=== PATIENT | female | born 1980 | race African-American/Black ===

== ENCOUNTER 2016-09-24 11:38 | Emergency (ER) | payer OTHER, MEDICARE ==
[2016-09-24 11:48] VITALS: BP 160/83
[2016-09-24] MEDS ORDERED: IBUPROFEN 800 MG TABLET PO ONE (11:50)
--- NOTE | 2016-09-24 11:52 | ER Document Report ---
ED Medical Screen (RME) - General Stated Complaint: STOMACH PAIN Mode of Arrival: Ambulatory Information source: Patient Notes: Patient presents to the emergency department with complaints of bilateral flank pain and abdominal pain. Reports history of pancreatitis. Reports nausea declines antinausea medicine. Declines Motrin. Patient is currently under the treatment of [facility]. I have greeted and performed a rapid initial assessment of this patient. A comprehensive ED assessment and evaluation of the patient, analysis of test results and completion of the medical decision making process will be conducted by additional ED providers. TRAVEL OUTSIDE OF THE [place] IN LAST 30 DAYS: No - Related Data Allergies/Adverse Reactions: Penicillins Allergy (Verified 09/24/16 11:50) Past Medical History - Past Medical History Cardiac Medical History: Reports: Hx Hypertension Endocrine Medical History: Reports: Hx Hypothyroidism GI Medical History: Reports: Hx Gastroesophageal Reflux Disease Psychiatric Medical History: Reports: Hx Depression Past Surgical History: Reports: Hx Section, Hx Cholecystectomy - BILE DUCTS - Immunizations Hx Diphtheria, Pertussis, Tetanus Vaccination: Yes Physical Exam - Vital signs Vitals: Temp Pulse Resp BP Pulse Ox 98.5 F 76 16 160/83 H 100 09/24/16 11:48 09/24/16 11:48 09/24/16 11:48 09/24/16 11:48 09/24/16 11:48 Course - Vital Signs Vital signs: Temp Pulse Resp BP Pulse Ox 98.5 F 76 16 160/83 H 100 09/24/16 11:48 09/24/16 11:48 09/24/16 11:48 09/24/16 11:48 09/24/16 11:48
== END 2016-09-24 19:28 | disposition left against medical advice (07) ==
LOC: ER 11:38
DX: R10.9 Unspecified abdominal pain (principal); I10 Essential (primary) hypertension; E03.9 Hypothyroidism, unspecified; K21.9 Gastro-esophageal reflux disease without esophagitis; Z88.0 Allergy status to penicillin; Z90.49 Acquired absence of other specified parts of digestive tract
CPT/HCPCS: 99281

== ENCOUNTER 2017-02-15 09:58 | Emergency (ER) | payer OTHER, MEDICARE ==
[2017-02-15] MEDS ORDERED: ONDANSETRON 4 MG TAB.RAPDIS PO ONE (10:42)
[2017-02-15] MEDS ORDERED: MORPHINE SULFATE 10 MG/ML INJ IM ONE (10:42)
--- NOTE | 2017-02-15 10:46 | ER Document Report ---
ED Medical Screen (RME) - General Chief Complaint: Flank Pain Stated Complaint: SIDE PAIN Time Seen by Provider: 02/15/17 10:41 Notes: 36-year-old female patient with chronic pancreatitis has increasing pain and was told by her doctor to come to the emergency room if that occurred. 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 I have greeted and performed a rapid initial assessment of this patient. A comprehensive ED assessment and evaluation of the patient, analysis of test results and completion of the medical decision making process will be conducted by additional ED providers. TRAVEL OUTSIDE OF THE [place] IN LAST 30 DAYS: No - Related Data Allergies/Adverse Reactions: Penicillins Allergy (Verified 02/15/17 10:01) Past Medical History - Social History Chew tobacco use (# tins/day): No Frequency of alcohol use: None Drug Abuse: None - Past Medical History Cardiac Medical History: Reports: Hx Hypertension Endocrine Medical History: Reports: Hx Hypothyroidism Renal/ Medical History: Denies: Hx Peritoneal Dialysis GI Medical History: Reports: Hx Gastroesophageal Reflux Disease Psychiatric Medical History: Reports: Hx Depression Past Surgical History: Reports: Hx Section, Hx Cholecystectomy - BILE DUCTS - Immunizations Hx Diphtheria, Pertussis, Tetanus Vaccination: Yes Physical Exam - Vital signs Vitals: Temp Pulse Resp BP Pulse Ox 98.1 F 93 16 150/85 H 100 02/15/17 10:02 02/15/17 10:02 02/15/17 10:02 02/15/17 10:02 02/15/17 10:02 Course - Vital Signs Vital signs: Temp Pulse Resp BP Pulse Ox 98.1 F 93 16 150/85 H 100 02/15/17 10:02 02/15/17 10:02 02/15/17 10:02 02/15/17 10:02 02/15/17 10:02
[2017-02-15 11:45] LABS: ABSOLUTE BASOPHILS # (AUTO) 0.1 10^3/uL (0.0-0.2); ABSOLUTE LYMPHOCYTES (AUTO) 1.9 10^3/uL (0.5-4.7); ABSOLUTE MONOCYTES (AUTO) 0.3 10^3/uL (0.1-1.4); ABSOLUTE NEUT (AUTO) 5.3 10^3/uL (1.7-8.2); BASOPHILS % (AUTO) 0.9 % (0-2); EOSINOPHILS % (AUTO) 0.6 % (0-6); HEMATOCRIT 29.6 % (36.0-47.0); HEMOGLOBIN 9.2 g/dL (12.0-15.5); LYMPHOCYTES % (AUTO) 24.5 % (13-45); MEAN CORPUSCULAR HEMOGLOBIN 18.4 pg (27.0-33.4); MONOCYTES % (AUTO) 4.4 % (3-13); RED BLOOD COUNT 4.98 10^6/uL (3.72-5.28); SEGMENTED NEUTROPHILS % (AUTO) 69.6 % (42-78); WHITE BLOOD COUNT 7.7 10^3/uL (4.0-10.5)
[2017-02-15] MEDS ORDERED: HYDROMORPHONE HCL INJ/PF 2 MG/ML AMPULE IV ONE (11:49)
[2017-02-15] MEDS ORDERED: NORMAL SALINE 1000 ML 1,000 ML IV ONE (11:49)
[2017-02-15] MEDS ORDERED: ONDANSETRON HCL INJ/PF 4 MG/2 ML SDV IV ONE (11:49)
--- NOTE | 2017-02-15 11:58 | ER Document Report ---
ED GI/ - General Mode of Arrival: Ambulatory Information source: Patient TRAVEL OUTSIDE OF THE [place] IN LAST 30 DAYS: No - HPI Patient complains to provider of: Abdominal pain, Vomiting Associated symptoms: Other - see above <KEYUR WEBSTER - Last Filed: 02/15/17 12:22> <URBANO RECINOS - Last Filed: 02/15/17 14:51> - General Chief Complaint: Flank Pain Stated Complaint: SIDE PAIN Time Seen by Provider: 02/15/17 10:41 Notes: Patient is a 36 year old female who presents to the ED with complaints of left side abdominal pain that radiates around her abdomen. Patient has had chronic pancreatitis since 2006. She has been given pain medication from her PCP and she states normally it will help ease the pain and when it doesn't she was instructed to go to the ED for testing and treatment. Patient states she had an MRCP through a [facility] doctor with the [facility] and was told her pancreas is dilated and it needs to be stented. She is waiting for the date for that surgery. Patient states she had an appointment with her PCP and he didn't review the results. Patient states she has nausea and vomiting, she has a prescription for Reglan but cannot take it due to not being able to eat. Patient states her pain is worse with all food. Patient denies a fever but she states she feels hot. Patient states this feels like a typical flare up. Patient adds that she is also suppose to be having a hysterectomy for ovarian fibroids and cysts. Patient states the IM pain medication she was given stopped the pain from radiating, she is still having pain. (KEYUR WEBSTER) - Related Data Allergies/Adverse Reactions: Penicillins Allergy (Verified 02/15/17 10:01) Home Medications: Current Home Medications Lipase/Protease/Amylase [Reyeson Dr 24,000 Units Capsule] 1 each PO ASDIR PRN [History] Metoclopramide HCl 10 mg PO PRN PRN 02/15/17 [History] Oxycodone HCl/Acetaminophen [Percocet 10-325 Mg Tablet] 1 each PO PRN PRN [History] Simethicone [[place]isse[place]] 125 mg PO PRN PRN 02/15/17 [History] Past Medical History - General Information source: Patient - Social History Smoking Status: Current Every Day Smoker Chew tobacco use (# tins/day): No Smoking Education Provided: Yes Frequency of alcohol use: None Drug Abuse: None Family History: Reviewed & Not Pertinent - Past Medical History Cardiac Medical History: Reports: Hx Hypertension Endocrine Medical History: Reports: Hx Hypothyroidism Renal/ Medical History: Denies: Hx Peritoneal Dialysis GI Medical History: Reports: Hx Gastroesophageal Reflux Disease, Other Psychiatric Medical History: Reports: Hx Depression Past Surgical History: Reports: Hx Section, Hx Cholecystectomy - BILE DUCTS - Immunizations Hx Diphtheria, Pertussis, Tetanus Vaccination: Yes <KEYUR WEBSTER - Last Filed: 02/15/17 12:22> - Social History Smoking Status: Current Every Day Smoker Smoking Education Provided: Yes - greater than 5 mins <URBANO RECINOS - Last Filed: 02/15/17 14:51> Other: Pancreatitis (KEYUR WEBSTER) Review of Systems - Review of Systems Constitutional: See HPI. denies: Fever - feels hot EENT: No symptoms reported Cardiovascular: No symptoms reported Respiratory: No symptoms reported Gastrointestinal: See HPI, Abdominal pain, Nausea, Vomiting, Poor appetite Genitourinary: No symptoms reported Female Genitourinary: No symptoms reported Musculoskeletal: No symptoms reported Skin: No symptoms reported Hematologic/Lymphatic: No symptoms reported Neurological/Psychological: No symptoms reported <KEYUR WEBSTER - Last Filed: 02/15/17 12:22> Physical Exam <KEYUR WEBSTER - Last Filed: 02/15/17 12:22> <URBANO RECINOS - Last Filed: 02/15/17 14:51> - Vital signs Vitals: Temp Pulse Resp BP Pulse Ox 98.1 F 93 16 150/85 H 100 02/15/17 10:02 02/15/17 10:02 02/15/17 10:02 02/15/17 10:02 02/15/17 10:02 - Notes Notes: GENERAL: Alert, interacts well. Mildly uncomfortable. HEAD: Normocephalic, atraumatic. EYES: Pupils equal, round, and reactive to light. Extraocular movements intact. ENT: Oral mucosa moist, tongue midline. NECK: Full range of motion. Supple. Trachea midline. LUNGS: Clear to auscultation bilaterally, no wheezes, rales, or rhonchi. No respiratory distress. HEART: Regular rate and rhythm. No murmurs, gallops, or rubs. ABDOMEN: Soft. Left lateral abdominal tenderness, LUQ and epigastric tenderness to palpation, no significant RUQ tenderness. Small voluntary guarding, no rigidity and rebound. Non-distended. Bowel sounds present in all 4 quadrants. BACK: No obvious swelling posteriorly. EXTREMITIES: Moves all 4 extremities spontaneously. No edema. No cyanosis. NEUROLOGICAL: Alert and oriented x3. Normal speech. PSYCH: Normal affect, normal mood. SKIN: Warm, dry, normal turgor. No rashes or lesions noted. (KEYUR WEBSTER) Course - Laboratory Result Diagrams: 02/15/17 11:30 02/15/17 11:30 <KEYUR WEBSTER - Last Filed: 02/15/17 12:22> - Laboratory Result Diagrams: 02/15/17 11:30 02/15/17 11:30 <URBANO RECINOS - Last Filed: 02/15/17 14:51> - Re-evaluation Re-evalutation: 02/15/17 13:13 CBC shows chronic anemia with hemoglobin 9.2, no leukocytosis, no left shift, CMP grossly unremarkable slightly low potassium at 3.4 otherwise normal, LFTs normal, bilirubin normal, lipase normal at 74.6, urinalysis negative for any signs of blood or infection. Discussed with patient that this appears to be continuing chronic pancreatitis but there is no indication of acute obstruction, no indication that she needs to be emergently transferred for ERCP and stenting. Patient is aware that she will need to continue to follow[facility]up with [facility] as an [facility] who provides both her primary care and gastroenterology care. Patient is recommended to be referred to pain management for her chronic abdominal pain. We did discuss that some of her pain may be coming not from her chronic pancreatitis but possibly from gastritis or ulcers as she apparently takes multiple Denisse[place]' s a day for gas pains. Patient is also taking Reglan for nausea, we will add Zofran and Phenergan to this as well. Discussed with patient that I will give her a 2 day supply of Percocet for pain as she has not had any narcotic pain medication filled in over 2 months. She will follow-up with her primary care physician as soon as possible as an outpatient. (URBANO RECINOS) - Vital Signs Vital signs: Temp Pulse Resp BP Pulse Ox 97.6 F 76 18 172/87 H 99 02/15/17 13:24 02/15/17 13:24 02/15/17 13:24 02/15/17 13:24 02/15/17 13:24 - Laboratory Laboratory results interpreted by me: 02/15/17 02/15/17 02/15/17 11:30 11:30 12:15 Hgb 9.2 L Hct 29.6 L MCV 59 L MCH 18.4 L MCHC 31.0 L RDW 21.0 H Potassium 3.4 L BUN 5 L Creatinine 0.49 L Urine Urobilinogen 2.0 H Discharge <KEYUR WEBSTER - Last Filed: 02/15/17 12:22> <URBANO RECINOS - Last Filed: 02/15/17 14:51> - Discharge Clinical Impression: Tobacco abuse, Tobacco abuse counseling, Abdominal pain, chronic, epigastric Hypertension Qualifiers: Hypertension type: essential hypertension Qualified Code(s): I10 - Essential ( primary) hypertension Chronic pancreatitis Qualifiers: Pancreatitis type: biliary Qualified Code(s): K86.1 - Other chronic pancreatitis Gastritis Qualifiers: Gastritis type: unspecified gastritis Chronicity: chronic Gastritis bleeding: presence of bleeding unspecified Qualified Code(s): K29.50 - Unspecified chronic gastritis without bleeding Condition: Stable Disposition: HOME, SELF-CARE Additional Instructions: Your chronic abdominal pain may be coming from his chronic pancreatitis but it may also be coming from gastritis related to taking Denisse[place]. Denisse-[place] has aspirin in it and can cause breakdown of your stomach lining. I know you used to take Nexium, we can start you on Zantac also known as ranitidine. This is available [id number]. You may take 75 mg 1 tablet twice a day. I prescribed you 2 days worth of Percocet to help with your pain however it is very important to follow-up with your primary care physician and her increment manager regarding her chronic abdominal pain. You had intermittent flares of acute pain which sometimes require narcotic level pain medication, this would be best managed by either your primary care physician or pain management. Please ask them for a referral to pain management until he can get into surgery. I have also prescribed Phenergan and Zofran to be used for nausea in addition to your Reglan. Prescriptions: Ondansetron [Zofran Odt 4 mg Tablet] 1 - 2 tab PO Q4H PRN #15 tab.rapdis PRN Reason: For Nausea/Vomiting Oxycodone HCl/Acetaminophen [Percocet 5-325 mg Tablet] 1 - 2 tab PO Q4H PRN #15 tablet PRN Reason: Promethazine HCl [Phenergan 25 mg Tablet] 1 - 2 tab PO Q6H PRN #15 tablet PRN Reason: Forms: Smoking Cessation Education, Elevated Blood Pressure Referrals: OLGA PARK MD [Primary Care Provider] - Follow up as needed Scribe Attestation: 02/15/17 14:51 I personally performed the services described in the documentation, reviewed and edited the documentation which was dictated to the scribe in my presence, and it accurately records my words and actions. (URBANO RECINOS) Scribe Documentation - Scribe Written by Zaid:: zaid Greene, 02/15/2017, 1222 acting as scribe for :: Tabatha <KEYUR WEBSTER - Last Filed: 02/15/17 12:22>
[2017-02-15 12:09] LABS: ANISOCYTOSIS 3+; HYPOCHROMASIA 1+; MICROCYTOSIS 4+; POIKILOCYTOSIS 1+; POLYCHROMASIA SLIGHT
[2017-02-15 12:10] LABS: OVALOCYTES SLIGHT; TARGET CELLS 2+; TEAR DROP CELLS 1+
[2017-02-15 12:12] LABS: MEAN CORPUSCULAR VOLUME 59 fl (80-97)
[2017-02-15 12:19] LABS: ALANINE AMINOTRANSFERASE 21 U/L (9-52); ALBUMIN 4.4 g/dL (3.5-5.0); ALKALINE PHOSPHATASE 68 U/L (38-126); ANION GAP 10 (5-19); ASPARTATE AMINO TRANSFERASE 19 U/L (14-36); BILIRUBIN,DIRECT 0.3 mg/dL (0.0-0.4); BILIRUBIN,TOTAL 0.5 mg/dL (0.2-1.3); BLOOD UREA NITROGEN 5 mg/dL (7-20); CALCIUM 9.6 mg/dL (8.4-10.2); CARBON DIOXIDE 26 mmol/L (22-30); CHLORIDE 106 mmol/L (98-107); CREATININE RESULT 0.49 mg/dL (0.52-1.25); GLUCOSE 97 mg/dL (75-110); LIPASE 74.6 U/L (23-300); POTASSIUM 3.4 mmol/L (3.6-5.0); SODIUM 141.9 mmol/L (137-145)
[2017-02-15 12:39] LABS: APPEARANCE,URINE SLIGHTLY-CLOUDY; BILIRUBIN,URINE NEGATIVE (NEGATIVE); GLUCOSE, URINE NEGATIVE (NEGATIVE); KETONES,URINE NEGATIVE (NEGATIVE); LEUKOCYTE ESTERASE,URINE NEGATIVE (NEGATIVE); NITRITE,URINE NEGATIVE (NEGATIVE); PROTEIN,URINE NEGATIVE (NEGATIVE); URINE SPECIFIC GRAVITY 1.019
[2017-02-15 13:29] VITALS: BP 172/87
[2017-02-18 10:30] LABS: PATH REVIEW PATHOLOGIST REVIEWED
== END 2017-02-15 13:29 | disposition home or self-care (01) ==
LOC: ER 09:58
DX: K29.50 Unspecified chronic gastritis without bleeding (principal); R10.13 Epigastric pain; K86.1 Other chronic pancreatitis; G89.29 Other chronic pain; Z79.899 Other long term (current) drug therapy; F17.200 Nicotine dependence, unspecified, uncomplicated
CPT/HCPCS: 99284; 96372; 96361; 96374; 96375; 36415; 83690; 85025; 80053; 81001; S0119; J2270; J1170; J2405; J7030

== ENCOUNTER 2017-03-10 09:14 | Emergency (ER) | payer OTHER, MEDICARE ==
[2017-03-10] MEDS ORDERED: ONDANSETRON 4 MG TAB.RAPDIS PO ONE (10:08)
[2017-03-10] MEDS ORDERED: OXYCODONE-ACETAMINOPHEN 5-325 MG TABLET PO ONE (10:08)
--- NOTE | 2017-03-10 10:12 | ER Document Report ---
ED Medical Screen (RME) - General Chief Complaint: Flank Pain Stated Complaint: BACK PAIN Time Seen by Provider: 03/10/17 10:02 Notes: 36-year-old female with long history of recurrent pancreatitis. She was seen here on 02/14/2017 with reported flare. At that time she had recently had an MRCP showing ductal dilatation and was supposed to be seen for possible stenting. She has not been seen yet, but reports she has an appointment for consultation on 03/19/2017. She reports a 4 day history of worsening pain which is primarily left flank. She tried Motrin and Tylenol on Saturday and Saturday without much benefit. She has not eaten since this past . Brief exam shows her pain is primarily in the left paravertebral upper lumbar lower thoracic muscles and I am not convinced this has anything to do with her pancreas. I have greeted and performed a rapid initial assessment of this patient. A comprehensive ED assessment and evaluation of the patient, analysis of test results and completion of the medical decision making process will be conducted by additional ED providers. TRAVEL OUTSIDE OF THE [place] IN LAST 30 DAYS: No - Related Data Allergies/Adverse Reactions: Penicillins Allergy (Verified 03/10/17 09:23) Past Medical History - Social History Chew tobacco use (# tins/day): No Frequency of alcohol use: None Drug Abuse: None - Past Medical History Cardiac Medical History: Reports: Hx Hypertension Endocrine Medical History: Reports: Hx Hypothyroidism Renal/ Medical History: Denies: Hx Peritoneal Dialysis GI Medical History: Reports: Hx Gastroesophageal Reflux Disease Psychiatric Medical History: Reports: Hx Depression Past Surgical History: Reports: Hx Section, Hx Cholecystectomy - BILE DUCTS - Immunizations Hx Diphtheria, Pertussis, Tetanus Vaccination: Yes
[2017-03-10 10:42] LABS: ABSOLUTE BASOPHILS # (AUTO) 0.1 10^3/uL (0.0-0.2); ABSOLUTE EOSINOPHILS # (AUTO) 0.1 10^3/uL (0.0-0.6); ABSOLUTE LYMPHOCYTES (AUTO) 1.6 10^3/uL (0.5-4.7); ABSOLUTE MONOCYTES (AUTO) 0.3 10^3/uL (0.1-1.4); ABSOLUTE NEUT (AUTO) 3.8 10^3/uL (1.7-8.2); BASOPHILS % (AUTO) 0.9 % (0-2); HEMATOCRIT 31.1 % (36.0-47.0); HEMOGLOBIN 9.8 g/dL (12.0-15.5); HGB HCT DIFFERENCE -1.7; LYMPHOCYTES % (AUTO) 26.7 % (13-45); MEAN CORPUSCULAR HEMOGLOBIN 19.5 pg (27.0-33.4); MEAN CORPUSCULAR HGB CONC 31.7 g/dL (32.0-36.0); MEAN CORPUSCULAR VOLUME 62 fl (80-97); MONOCYTES % (AUTO) 5.8 % (3-13); RED BLOOD COUNT 5.04 10^6/uL (3.72-5.28); SEGMENTED NEUTROPHILS % (AUTO) 65.6 % (42-78); WHITE BLOOD COUNT 5.9 10^3/uL (4.0-10.5)
[2017-03-10 10:56] LABS: ALANINE AMINOTRANSFERASE 28 U/L (9-52); ALBUMIN 4.4 g/dL (3.5-5.0); ALKALINE PHOSPHATASE 70 U/L (38-126); ANION GAP 12 (5-19); ASPARTATE AMINO TRANSFERASE 26 U/L (14-36); BILIRUBIN,DIRECT 0.4 mg/dL (0.0-0.4); BILIRUBIN,TOTAL 0.7 mg/dL (0.2-1.3); BLOOD UREA NITROGEN 10 mg/dL (7-20); CARBON DIOXIDE 24 mmol/L (22-30); CHLORIDE 106 mmol/L (98-107); CREATININE RESULT 0.55 mg/dL (0.52-1.25); GLUCOSE 95 mg/dL (75-110); LIPASE 56.9 U/L (23-300); POTASSIUM 3.7 mmol/L (3.6-5.0); SODIUM 142.4 mmol/L (137-145); TOTAL PROTEIN 7.7 g/dL (6.3-8.2)
[2017-03-10 11:02] LABS: ANISOCYTOSIS 2+; HYPOCHROMASIA 2+; MICROCYTOSIS 3+
[2017-03-10 11:03] LABS: HELMET CELLS SLIGHT; POIKILOCYTOSIS 2+; POLYCHROMASIA SLIGHT; TARGET CELLS 1+; TEAR DROP CELLS SLIGHT
[2017-03-10] MEDS ORDERED: NORMAL SALINE 1000 ML 1,000 ML IV ONE (11:20)
--- NOTE | 2017-03-10 11:52 | ER Document Report ---
ED General - General Chief Complaint: Flank Pain Stated Complaint: BACK PAIN Time Seen by Provider: 03/10/17 10:02 TRAVEL OUTSIDE OF THE [place] IN LAST 30 DAYS: No - HPI Notes: Patient is a 36yo female with a h/o chronic pancreatitis and recurrent left flank pain who presents to the ED c/o low back pain and left flank pain x4 days. Pt states that she has been having nausea w/o vomiting as well. Her solid/fluid intake has been decreased. She is still urinating normally and w/o difficulty along with normal BM's. Pt states that she has chronic abdominal pain and chronic pelvic pain. Pt is scheduled on 03/19/17 for a stent placement for her pancreas. She was eval'd in the ED 3 weeks ago for a similar issue and had a negative work up at that time. Denies any headache, fever, head injury, neck pain, changes in vision/speech/mentation/hearing, URI, sore throat, chest pain, palpitations, syncope, cough, shortness of breath, wheeze, dyspnea, abdominal pain, nausea/vomiting/diarrhea, urinary retention, dysuria, hematuria, loss of control of bowel or bladder, numbness/tingling, saddle anesthesia, muscle paralysis/weakness, or rash. Denies IV drug use, diabetes, or injections to her back. - Related Data Allergies/Adverse Reactions: Penicillins Allergy (Verified 03/10/17 09:23) Past Medical History - Social History Smoking Status: Current Every Day Smoker Chew tobacco use (# tins/day): No Frequency of alcohol use: None Drug Abuse: None Family History: Reviewed & Not Pertinent - Past Medical History Cardiac Medical History: Reports: Hx Hypertension Endocrine Medical History: Reports: Hx Hypothyroidism Renal/ Medical History: Denies: Hx Peritoneal Dialysis GI Medical History: Reports: Hx Gastroesophageal Reflux Disease Psychiatric Medical History: Reports: Hx Depression Past Surgical History: Reports: Hx Section, Hx Cholecystectomy - BILE DUCTS - Immunizations Hx Diphtheria, Pertussis, Tetanus Vaccination: Yes Review of Systems - Review of Systems Notes: REVIEW OF SYSTEMS: CONSTITUTIONAL : Denies fever, chills, or sweats. Denies recent illness. EENT: Denies eye, ear, throat, or mouth pain or symptoms. Denies nasal or sinus congestion or discharge. Denies throat, tongue, or mouth swelling or difficulty swallowing. CARDIOVASCULAR: Denies chest pain. Denies palpitations or racing or irregular heart beat. Denies ankle edema. RESPIRATORY: Denies cough, cold, or chest congestion. Denies shortness of breath, difficulty breathing, or wheezing. GASTROINTESTINAL: see hpi GENITOURINARY: Denies difficulty urinating, painful urination, burning, frequency, blood in urine, or discharge. MUSCULOSKELETAL: see hpi SKIN: Denies rash, lesions or sores. NEUROLOGICAL: Denies confusion or altered mental status. Denies passing out or loss of consciousness. Denies dizziness or lightheadedness. Denies headache. Denies weakness or paralysis or loss of use of either side. Denies problems with gait or speech. Denies sensory loss, numbness, or tingling. Denies seizures. PSYCHIATRIC: Denies anxiety or stress. Denies depression, suicidal ideation, or homicidal ideation. ALL OTHER SYSTEMS REVIEWED AND NEGATIVE. Dictation was performed using [employer] voice recognition software Physical Exam - Vital signs Vitals: Temp Pulse Resp BP Pulse Ox 98.1 F 102 H 16 162/97 H 99 03/10/17 09:22 03/10/17 09:22 03/10/17 09:22 03/10/17 09:22 03/10/17 09:22 Notes: PHYSICAL EXAMINATION: GENERAL: Well-appearing, well-nourished and in no acute distress. EYES: Pupils equal round and reactive to light, extraocular movements intact, sclera anicteric, conjunctiva are normal. NECK: Normal range of motion, supple without lymphadenopathy. No rigidity. LUNGS: Breath sounds clear to auscultation bilaterally and equal. No wheezes rales or rhonchi. HEART: Regular rate and rhythm without murmurs, rubs, gallops. ABDOMEN: Soft, no rigidity, nondistended abdomen. No guarding, no rebound. No masses appreciated. Normal bowel sounds present. No CVA tenderness bilaterally. + minimal tenderness generalized. ?true tenderness. Back: FROM to passive/active. Strength 5+/5. Pt has mild tenderness to palp of the left superior L-paraspinal musculature to light touch. Musculoskeletal: LE's b/l: FROM to passive/active. Strength 5+/5. Extremities: No cyanosis, clubbing, or edema b/l. Peripheral pulses 2+. Capillary refill less than 3 seconds. NEUROLOGICAL: Cranial nerves grossly intact. Normal speech, normal gait. Normal sensory, motor exams PSYCH: Normal mood, normal affect. SKIN: Warm, Dry, normal turgor, no rashes or lesions noted. Course - Re-evaluation Re-evalutation: 03/10/17 12:[address] Hernandez who is in agreement with discharge/plan: Patient is an afebrile, well-hydrated, 36-year-old female who presents the ED with chronic back/abdominal pain. Vitals are stable. PE otherwise unremarkable. Pt continually requesting narcotics even though she was given Oxycodone during her triage. CBC, CMP, lipase, UA unremarkable for acute pathology. No imaging warranted at this time. Based on exam, it appears as though she has musculoskeletal pain in her left low/mid back w/o any neurological compromise. Pt is having normal BM's and urinary habits. No white count. Stable anemia. negative Lipase for acute process. Pt is scheduled for a stent placement in 9 days. I do not feel narcotics are warranted for her current condition. Pt was threatening to leave if she did not receive pain medication. She was told that we needed to wait for her labs to return and that she had received pain medication at the door. I did give her Toradol 30mg IV, 1L NS, Zofran (by triage provider), Oxycodone (by triage provider), lidoderm patch, and heat pack placed today. Low suspicion for any meningitis, fracture, acute abdomen (ovarian torsion, appendicitis, pancreatitis , peritonitis, cholecystitis/angitis, etc), expanding/ruptured AAA, cauda equina syndrome, epidural mass lesion/abscess, herniated disc causing severe spinal stenosis, or other systemic urgent/emergent condition at this time. Patient is aware that her condition can change from initial presentation and that she needs monitor symptoms closely for any acute changes. I will send her home with a Rx for zofran and naproxen. Conservative measures otherwise for symptoms as reviewed. Recheck with your PCM this week. Keep your consult for your stent placement. Return to the ED with any worsening/concerning symptoms otherwise as reviewed discharge. Patient is in agreement. - Vital Signs Vital signs: Temp Pulse Resp BP Pulse Ox 98.1 F 102 H 16 162/97 H 99 03/10/17 09:22 03/10/17 09:22 03/10/17 09:22 03/10/17 09:22 03/10/17 09:22 - Laboratory Result Diagrams: 03/10/17 10:17 03/10/17 10:17 Laboratory results interpreted by me: 03/10/17 03/10/17 10:17 10:43 Hgb 9.8 L Hct 31.1 L MCV 62 L MCH 19.5 L MCHC 31.7 L RDW 22.0 H Urine Urobilinogen 2.0 H Discharge - Discharge Clinical Impression: Chronic abdominal pain Chronic back pain Qualifiers: Back pain location: low back pain Back pain laterality: left Sciatica presence : without sciatica Qualified Code(s): M54.5 - Low back pain Condition: Stable Disposition: HOME, SELF-CARE Instructions: Abdominal Pain ([facility]), Antinausea Medication ([facility]) Additional Instructions: Rest, Ice Maintain adequate fluid/food intake. Tylenol/ibuprofen as needed Light stretches daily Strength exercises as able Moist heat and massage may help F/u with your PCP in 2-3 days for a recheck Consider consult(s) with Orthopedics/physical therapy for ongoing/worsening symptoms Return to the ED with any worsening symptoms and/or development of fever, headache, chest pain, palpitations, syncope, shortness of breath, trouble breathing, abdominal pain, n/v/d, blood in stool/urine, loss of control of bowel /bladder, urinary retention, muscle weakness/paralysis, saddle anesthesia, numbness/tingling, or other worsening symptoms that are concerning to you. Prescriptions: Naproxen 500 mg PO BID PRN #30 tablet PRN Reason: Ondansetron [Zofran Odt 4 mg Tablet] 1 - 2 tab PO Q4H PRN #15 tab.rapdis PRN Reason: For Nausea/Vomiting Referrals: [facility] [Provider Group] - Follow up as needed [facility] [Provider Group] - Follow up as needed JOSE MALDONADO MD [ACTIVE STAFF] - Follow up as needed
[2017-03-10] MEDS ORDERED: KETOROLAC TROMETHAMINE INJ/PF 30 MG/1 ML SDV IV ONE (11:53)
[2017-03-10] MEDS ORDERED: LIDOCAINE 5% (700 MG) TRANSDERMAL ADH..PATCH TP ONE (11:53)
[2017-03-10 12:03] LABS: APPEARANCE,URINE SLIGHTLY-CLOUDY; BILIRUBIN,URINE NEGATIVE (NEGATIVE); GLUCOSE, URINE NEGATIVE (NEGATIVE); KETONES,URINE NEGATIVE (NEGATIVE); LEUKOCYTE ESTERASE,URINE NEGATIVE (NEGATIVE); NITRITE,URINE NEGATIVE (NEGATIVE); PROTEIN,URINE NEGATIVE (NEGATIVE); URINE SPECIFIC GRAVITY 1.025
[2017-03-10 13:02] VITALS: BP 162/97
== END 2017-03-10 13:03 | disposition home or self-care (01) ==
LOC: ER 09:14
DX: G89.29 Other chronic pain (principal); R10.9 Unspecified abdominal pain; M54.5 Low back pain; R11.0 Nausea; F17.200 Nicotine dependence, unspecified, uncomplicated; I10 Essential (primary) hypertension; E03.9 Hypothyroidism, unspecified; K21.9 Gastro-esophageal reflux disease without esophagitis; Z88.0 Allergy status to penicillin; Z90.49 Acquired absence of other specified parts of digestive tract
CPT/HCPCS: 99284; 96374; 36415; 83690; 84703; 85025; 80053; 81001; S0119; J1885; J7030

== ENCOUNTER 2017-06-03 08:23 | Day surgery (SDC) | payer OTHER, MEDICARE ==
[2017-05-31 10:49] LABS: MEAN CORPUSCULAR HEMOGLOBIN 20.1 pg (27.0-33.4); MEAN CORPUSCULAR HGB CONC 32.2 g/dL (32.0-36.0); MEAN CORPUSCULAR VOLUME 63 fl (80-97); RED BLOOD COUNT 4.48 10^6/uL (3.72-5.28); RED CELL DISTRIBUTION WIDTH 21.5 % (11.5-14.0); WHITE BLOOD COUNT 5.7 10^3/uL (4.0-10.5)
[2017-05-31 11:01] LABS: ALANINE AMINOTRANSFERASE 24 U/L (9-52); ALBUMIN 4.4 g/dL (3.5-5.0); ALKALINE PHOSPHATASE 55 U/L (38-126); ANION GAP 12 (5-19); ASPARTATE AMINO TRANSFERASE 19 U/L (14-36); BILIRUBIN,DIRECT 0.3 mg/dL (0.0-0.4); BILIRUBIN,TOTAL 0.5 mg/dL (0.2-1.3); BLOOD UREA NITROGEN 9 mg/dL (7-20); CARBON DIOXIDE 28 mmol/L (22-30); CHLORIDE 105 mmol/L (98-107); GLUCOSE 73 mg/dL (75-110); POTASSIUM 4.4 mmol/L (3.6-5.0); TOTAL PROTEIN 7.2 g/dL (6.3-8.2)
[~2017-06-03 08:23] MED LIST: CEFAZOLIN 1 GM/D5W RTU 1 GM/50 ML RTUPB IV PRN; LACTATED RINGERS 1000 ML IV PRN; LIDOCAINE 0.5% INJ-PF (5 MG/ML) 50 ML SDV SUBCUT PRN
[2017-06-03 08:48] LABS: APPEARANCE,URINE CLEAR; BILIRUBIN,URINE NEGATIVE (NEGATIVE); GLUCOSE, URINE NEGATIVE (NEGATIVE); KETONES,URINE NEGATIVE (NEGATIVE); LEUKOCYTE ESTERASE,URINE NEGATIVE (NEGATIVE); NITRITE,URINE NEGATIVE (NEGATIVE); PROTEIN,URINE NEGATIVE (NEGATIVE)
[2017-06-03 08:58] LABS: BACTERIA,URINE TRACE /HPF; RBC,URINE RARE /HPF
[2017-06-03] MEDS ORDERED: VECURONIUM BROMIDE INJ 10 MG VIAL IV ONE (10:00)
[2017-06-03] MEDS ORDERED: DEXAMETHASONE SOD PHOSPHATE INJ 4 MG/1 ML VIAL ONE (10:00)
[2017-06-03] MEDS ORDERED: GLYCOPYRROLATE INJ 0.4 MG/2 ML VIAL ONE (10:00)
[2017-06-03] MEDS ORDERED: ONDANSETRON HCL INJ/PF 4 MG/2 ML SDV ONE (10:00)
[2017-06-03] MEDS ORDERED: NEOSTIGMINE METHYLSULFATE 10 MG/10 ML VIAL ONE (10:00)
[2017-06-03] MEDS ORDERED: LIDOCAINE 2% INJ-PF (20 MG/ML) 2 ML AMPUL ONE (10:00)
[2017-06-03] MEDS ORDERED: FENTANYL CITRATE INJ/PF 100 MCG/2 ML AMPUL ONE ×3 (11:09→14:41)
[2017-06-03] MEDS ORDERED: ACETAMINOPHEN 100 ML IV ONE ×2 (11:10→13:40)
[2017-06-03] MEDS ORDERED: PROPOFOL INJ 200 MG/20 ML VIAL IV ONE (11:10)
[2017-06-03] MEDS ORDERED: MIDAZOLAM 2 MG/2 ML INJ ONE (11:10)
[2017-06-03] MEDS ORDERED: HYDROMORPHONE HCL INJ/PF 2 MG/ML AMPULE ONE ×4 (11:10→19:15)
[2017-06-03] MEDS ORDERED: LABETALOL HCL INJ 20 MG/4 ML DISP.SYRIN IV ONE (12:14)
[2017-06-03] MEDS ORDERED: DIPHENHYDRAMINE HCL 50 MG/ML VIAL IV PRN (12:51)
[2017-06-03] MEDS ORDERED: MORPHINE SULFATE 10 MG/ML INJ IV PRN (12:51)
[2017-06-03] MEDS ORDERED: MEPERIDINE HCL/PF INJ 25 MG/1 ML DISP.SYRIN IV PRN (12:51)
[2017-06-03] MEDS ORDERED: PROMETHAZINE HCL INJ 25 MG/1 ML VIAL IV PRN (12:51)
[2017-06-03] MEDS ORDERED: FENTANYL CITRATE INJ/PF 100 MCG/2 ML AMPUL IV PRN ×3 (12:51)
--- NOTE | 2017-06-03 13:28 | OPERATIVE REPORT E ---
Operative Report NAME: QUENTIN BELTRAN : 1980 AGE: 36Y DATE OF SURGERY: 06/03/2017 ROOM: PREOPERATIVE DIAGNOSIS: Menorrhagia. POSTOPERATIVE DIAGNOSIS: Menorrhagia. PROCEDURE: Total hysterectomy by robotics. ESTIMATED BLOOD LOSS: Approximately 200 mL. SURGEON: Yogesh VALENCIA M.D. TISSUE REMOVED: Uterus. ANESTHESIA: General. DESCRIPTION OF PROCEDURE: Patient was placed in a deep dorsal lithotomy position and prepped and draped in a sterile fashion. Speculum was placed and cervix was visualized and grasped with a single-toothed tenaculum sounded to a depth of 10 cm. The uterine manipulator was then placed. Single-toothed tenaculum was removed and attention was turned to the abdomen. A supraumbilical incision was made and vagina entered with sharp dissection. A trocar was then placed. Visualization of the pelvis with multiple adhesions through the anterior abdominal wall from the omentum. Second puncture was made to the right and a trocar was introduced *------* to the left and an accessory port in the lower right quadrant. Robot was docked in usual fashion. Using monopolar cautery, the right utero-ovarian ligament was identified and divided and this was continued down to the uterine artery on the right and procedure was repeated on the left. The bladder flap was created with sharp dissection. *------* was identified and the mucosa was entered with sharp dissection using cautery and this was carried around and the uterus removed. The cuff was then closed with running suture of 0 Vicryl. Hemostasis was noted. The trocars were removed after deflating the abdomen and incision was closed with 0 Vicryl for the fascia and 4-0 subcutaneous. The patient's urine remained clear throughout the procedure. She was taken to recovery room in good condition. DICTATING PHYSICIAN: Yogesh VALENCIA M.D. [id number] PHY#: [id number] ID: [id number] JOB#: [id number] ACCT: [id number] cc:Yogesh VALENCIA M.D. >
[2017-06-03] MEDS ORDERED: KETOROLAC TROMETHAMINE INJ/PF 30 MG/1 ML SDV ONE (13:34)
[2017-06-03] MEDS: FENTANYL CITRATE INJ/PF 100 MCG/2 ML AMPUL ONE ×2 (13:39→13:43)
[2017-06-03] MEDS ORDERED: HYDROMORPHONE HCL 2 MG TABLET PO PRN ×2 (14:07→14:08)
[2017-06-03] MEDS ORDERED: HYDROMORPHONE HCL INJ/PF 2 MG/ML AMPULE IV PRN ×2 (14:07)
[2017-06-03] MEDS ORDERED: ONDANSETRON 4 MG TAB.RAPDIS PO PRN (14:08)
[2017-06-03] MEDS ORDERED: MORPHINE SULFATE 10 MG/ML INJ ONE (14:12)
[2017-06-03] MEDS ORDERED: OXYCODONE-ACETAMINOPHEN 5-325 MG TABLET ONE (14:29)
[2017-06-03] MEDS: HYDROMORPHONE HCL INJ/PF 2 MG/ML AMPULE ONE ×2 (14:30→14:53)
[2017-06-03 17:26] LABS: HEMATOCRIT 24.2 % (36.0-47.0); HGB HCT DIFFERENCE -1.7; MEAN CORPUSCULAR VOLUME 64 fl (80-97); RED BLOOD COUNT 3.76 10^6/uL (3.72-5.28); RED CELL DISTRIBUTION WIDTH 21.6 % (11.5-14.0); WHITE BLOOD COUNT 16.7 10^3/uL (4.0-10.5)
[2017-06-03] MEDS ORDERED: LORAZEPAM 1 MG TABLET ONE (17:29)
[2017-06-03] MEDS: IBUPROFEN 800 MG TABLET PO SCH (17:40)
[2017-06-03 17:45] LABS: ANION GAP 13 (5-19); BLOOD UREA NITROGEN 12 mg/dL (7-20); CALCIUM 8.6 mg/dL (8.4-10.2); CARBON DIOXIDE 19 mmol/L (22-30); CHLORIDE 107 mmol/L (98-107); CREATININE RESULT 0.57 mg/dL (0.52-1.25); GLUCOSE 90 mg/dL (75-110); POTASSIUM 3.8 mmol/L (3.6-5.0); SODIUM 139.3 mmol/L (137-145)
[2017-06-03] MEDS: LORAZEPAM 1 MG TABLET PO SCH (17:46)
[2017-06-03 18:07] LABS: ANISOCYTOSIS 3+; BASOPHILS % (MANUAL) 0 % (0-2); EOSINOPHILS % (MANUAL) 0 % (0-6); HYPOCHROMASIA 1+; LYMPHOCYTES % (MANUAL) 5 % (13-45); MICROCYTOSIS 3+; TOTAL CELLS COUNTED 100
[2017-06-03 18:08] LABS: TARGET CELLS SLIGHT
[2017-06-03 18:09] LABS: HEMOGLOBIN 7.5 g/dL (12.0-15.5)
[2017-06-03] MEDS ORDERED: SIMETHICONE 80 MG TAB.CHEW PO PRN (19:04)
[2017-06-03] MEDS ORDERED: HYDRALAZINE HCL INJ/PF 20 MG/1 ML SDV ONE (19:11)
[2017-06-03] MEDS ORDERED: METOCLOPRAMIDE HCL INJ/PF 10 MG/2 ML SDV ONE (19:18)
[2017-06-03] MEDS ORDERED: DIPHENHYDRAMINE HCL 50 MG/ML VIAL IV ONE (19:25)
[2017-06-03] MEDS ORDERED: LORAZEPAM INJ 2 MG/1 ML VIAL IV ONE (19:26)
[2017-06-03] MEDS ORDERED: DIPHENHYDRAMINE HCL 50 MG/ML VIAL ONE (19:30)
[2017-06-03] MEDS ORDERED: LORAZEPAM INJ 2 MG/1 ML VIAL ONE (19:31)
--- NOTE | 2017-06-03 19:38 | Progress Note ---
Provider Note Provider Note: called to rapid response. Patient found to be tachycardic and hypertensive with a BP 190/110 of , HR of 120 SPo2 100% on RA. Patient reports taking verapamil at home. Reports history of chronic opiate dependance, prior hx of etoh, chronic pancreatitis, HTN. patient denies chest pain and shortness of breath. Admits to abdominal pain, sharp LUQ. Patient obviously anxious and possibly in pain. Given hydralazine 10mg IV x1, and dilaudid 1mg IV x1. Patient had minimal improvement. Gen: A+Ox3, in pain HEENT: AT/NC, MMM Chest: CTAB CV: tachycardic, RRR Abdomen: soft, pain out of proportion to physical exam EXT: no edema Neuro: grossly intact Psych: anxious Will obtain EKG, Cardiac enzymes, BMP, Mag, CBC, and lipase. Give haldol, ativan , benadryl. Spoke to Dr. Lucero and offered imaging and was declined. Advised to follow labs and asked to examine patient. He agrees. Will sign off.
[2017-06-03] MEDS ORDERED: LIDOCAINE 2% VISCOUS SOLN 20 ML UDCUP PO ONE (19:45)
[2017-06-03] MEDS ORDERED: METOCLOPRAMIDE HCL ORAL SOLN 10 MG/10 ML UDCUP PO ONE (19:45)
[2017-06-03] MEDS ORDERED: MAG HYDROX/AL HYDROX/SIMETH SUSP 30 ML UDCUP PO ONE (19:45)
[2017-06-03] MEDS ORDERED: NALOXONE HCL INJ 2 MG/2 ML DISP.SYRIN IV PRN (19:47)
--- NOTE | 2017-06-03 19:47 | Progress Note ---
Provider Note Provider Note: Will add narcan prn due to patient unusually high narcotic need. Also defer diagnosis, treatment, and prognosis of postoperative abdominal pain in post operative patient to the primary MICROFILM MACHINE OPERATOR attending. He is present at bedside evaluating patient.
[2017-06-03 19:51] LABS: LIPASE 45.6 U/L (23-300)
[2017-06-03 19:52] LABS: HEMATOCRIT 25.5 % (36.0-47.0); HGB HCT DIFFERENCE -2.1; MEAN CORPUSCULAR HEMOGLOBIN 19.4 pg (27.0-33.4); MEAN CORPUSCULAR HGB CONC 30.6 g/dL (32.0-36.0); MEAN CORPUSCULAR VOLUME 63 fl (80-97); RED BLOOD COUNT 4.03 10^6/uL (3.72-5.28); WHITE BLOOD COUNT 18.1 10^3/uL (4.0-10.5)
[2017-06-03 19:53] LABS: ANION GAP 14 (5-19); BLOOD UREA NITROGEN 12 mg/dL (7-20); CARBON DIOXIDE 19 mmol/L (22-30); CHLORIDE 106 mmol/L (98-107); CREATININE RESULT 0.57 mg/dL (0.52-1.25); GLUCOSE 117 mg/dL (75-110); HEMOGLOBIN 7.8 g/dL (12.0-15.5); MAGNESIUM 1.9 mg/dL (1.6-2.3); POTASSIUM 4.1 mmol/L (3.6-5.0); SODIUM 138.5 mmol/L (137-145)
[2017-06-03 20:04] LABS: CREATINE KINASE MB 0.75 ng/mL (<4.55)
[2017-06-03 20:05] LABS: TROPONIN I < 0.012 ng/mL
[2017-06-03] MEDS ORDERED: HYDRALAZINE HCL INJ/PF 20 MG/1 ML SDV IV ONE (20:15)
[2017-06-03 20:26] LABS: BASOPHILS % (MANUAL) 0 % (0-2); EOSINOPHILS % (MANUAL) 0 % (0-6); LYMPHOCYTES % (MANUAL) 5 % (13-45); TOTAL CELLS COUNTED 100
[2017-06-03 20:27] LABS: ANISOCYTOSIS 3+; HYPOCHROMASIA 1+; MICROCYTOSIS 3+; PLATELET CLUMPS PRESENT; TARGET CELLS SLIGHT
[2017-06-03] MEDS ORDERED: HALOPERIDOL LACTATE INJ 5 MG/1 ML VIAL IV ONE (20:30)
--- NOTE | 2017-06-03 20:43 | EKG REPORT ---
SEVERITY:- ABNORMAL ECG - SINUS TACHYCARDIA NONSPECIFIC IVCD WITH LAD LEFT VENTRICULAR HYPERTROPHY INFERIOR Q WAVES, PROBABLY NORMAL VARIATION : Confirmed by: Reina Abernathy 03-Jun-2017 20:43:11
--- NOTE | 2017-06-03 20:43 | EKG REPORT ---
SEVERITY:- ABNORMAL ECG - SINUS RHYTHM VENTRICULAR BIGEMINY BORDERLINE T ABNORMALITIES, ANTERIOR LEADS : Confirmed by: Reina Abernathy 03-Jun-2017 20:43:35
--- NOTE | 2017-06-03 20:43 | EKG REPORT ---
SEVERITY:- ABNORMAL ECG - SINUS TACHYCARDIA VENTRICULAR BIGEMINY INFERIOR Q WAVES, PROBABLY NORMAL VARIATION BORDERLINE PROLONGED QT INTERVAL : Confirmed by: Reina Abernathy 03-Jun-2017 20:42:57
[2017-06-03 22:49] LABS: ABSOLUTE LYMPHOCYTES (AUTO) 1.3 10^3/uL (0.5-4.7); ABSOLUTE MONOCYTES (AUTO) 0.5 10^3/uL (0.1-1.4); ABSOLUTE NEUT (AUTO) 11.4 10^3/uL (1.7-8.2); BASOPHILS % (AUTO) 0.1 % (0-2); HEMATOCRIT 22.5 % (36.0-47.0); HGB HCT DIFFERENCE -1.2; LYMPHOCYTES % (AUTO) 9.5 % (13-45); MEAN CORPUSCULAR HEMOGLOBIN 20.1 pg (27.0-33.4); MEAN CORPUSCULAR HGB CONC 31.8 g/dL (32.0-36.0); MEAN CORPUSCULAR VOLUME 63 fl (80-97); MONOCYTES % (AUTO) 3.8 % (3-13); RED BLOOD COUNT 3.55 10^6/uL (3.72-5.28); RED CELL DISTRIBUTION WIDTH 21.9 % (11.5-14.0); SEGMENTED NEUTROPHILS % (AUTO) 86.6 % (42-78); WHITE BLOOD COUNT 13.2 10^3/uL (4.0-10.5)
[2017-06-03 22:50] LABS: HEMOGLOBIN 7.1 g/dL (12.0-15.5)
[2017-06-03 22:53] LABS: ANISOCYTOSIS 3+; HYPOCHROMASIA 1+; MICROCYTOSIS 3+; POIKILOCYTOSIS SLIGHT; TARGET CELLS SLIGHT; TEAR DROP CELLS SLIGHT
[2017-06-03] MEDS: HYDROMORPHONE HCL INJ/PF 2 MG/ML AMPULE IV PRN (23:16)
[2017-06-04] MEDS: HYDROMORPHONE HCL INJ/PF 2 MG/ML AMPULE IV PRN ×3 (04:34→10:55)
[2017-06-04] MEDS: LORAZEPAM 1 MG TABLET PO SCH (06:10)
[2017-06-04 07:05] LABS: ABSOLUTE MONOCYTES (AUTO) 0.7 10^3/uL (0.1-1.4); ABSOLUTE NEUT (AUTO) 7.1 10^3/uL (1.7-8.2); BASOPHILS % (AUTO) 0.3 % (0-2); HEMATOCRIT 20.4 % (36.0-47.0); HGB HCT DIFFERENCE -0.3; LYMPHOCYTES % (AUTO) 20.2 % (13-45); MEAN CORPUSCULAR HEMOGLOBIN 20.7 pg (27.0-33.4); MEAN CORPUSCULAR HGB CONC 32.8 g/dL (32.0-36.0); MEAN CORPUSCULAR VOLUME 63 fl (80-97); MONOCYTES % (AUTO) 6.8 % (3-13); RED BLOOD COUNT 3.25 10^6/uL (3.72-5.28); RED CELL DISTRIBUTION WIDTH 21.9 % (11.5-14.0); SEGMENTED NEUTROPHILS % (AUTO) 72.7 % (42-78); WHITE BLOOD COUNT 9.7 10^3/uL (4.0-10.5)
[2017-06-04 07:31] LABS: ANION GAP 10 (5-19); BLOOD UREA NITROGEN 10 mg/dL (7-20); CALCIUM 8.3 mg/dL (8.4-10.2); CARBON DIOXIDE 22 mmol/L (22-30); CHLORIDE 108 mmol/L (98-107); CREATININE RESULT 0.58 mg/dL (0.52-1.25); GLUCOSE 93 mg/dL (75-110); POTASSIUM 3.7 mmol/L (3.6-5.0); SODIUM 140.3 mmol/L (137-145)
[2017-06-04 08:01] LABS: HEMOGLOBIN 6.7 g/dL (12.0-15.5)
[2017-06-04 08:12] LABS: TOXIC GRANULATION SLIGHT
[2017-06-04 08:13] LABS: ANISOCYTOSIS 3+; HYPOCHROMASIA 2+; MICROCYTOSIS 3+; POIKILOCYTOSIS SLIGHT; POLYCHROMASIA SLIGHT; TEAR DROP CELLS SLIGHT
[2017-06-04] MEDS ORDERED: VERAPAMIL HCL 120 MG TABLET.SA PO SCH (10:00)
[2017-06-04] MEDS: IBUPROFEN 800 MG TABLET PO SCH (10:55)
--- NOTE | 2017-06-04 16:43 | PDOC DISCHARGE SUMMARY ---
General - Admit/Disc Date/PCP Admission Date/Primary Care Provider: CADENCE BERGMAN MD Discharge Date: 06/04/17 - Discharge Diagnosis (1) Pelvic peritoneal adhesions, female Is this a current diagnosis for this admission?: Yes (2) Fibroids Is this a current diagnosis for this admission?: Yes History of Present Illness Patient complains of: Pelvic pain and heavy menses. History of Present Illness: QUENTIN BELTRAN is a 36 year old female She presents with anemia from blood loss, fibroids and heavy menses with adhsions and pain. She underwent a robotic hysterectomy. Hospital Course Hospital Course: She underwent a robotic hysterectomy. Post op she had anemia from blood loss prior to the surgery and with the hysterectomy but did not need a blood transfusion. She also had some anxiety and blood pressure issues related to pain control. The following day she did much better and is ready to go home. Physical Exam - Physical Exam Vital Signs: Temp Pulse Resp BP Pulse Ox 98.0 F 114 H 16 156/85 H 100 06/04/17 15:34 06/04/17 15:34 06/04/17 15:34 06/04/17 15:34 06/04/17 15:34 Intake & Output 06/03/17 06/04/17 06/05/17 06:59 06:59 06:59 Intake Total 4030 240 Output Total 3550 300 Balance 480 -60 Weight 75.3 kg General appearance: PRESENT: no acute distress, well-developed, well-nourished Head exam: PRESENT: atraumatic, normocephalic GI/Abdominal exam: PRESENT: normal bowel sounds, soft. ABSENT: distended, guarding, mass, organolmegaly, rebound, tenderness Extremities exam: PRESENT: full ROM. ABSENT: calf tenderness, clubbing, pedal edema Result Laboratory Results: 06/04/17 06:29 06/04/17 06:29 06/03/17 06/03/17 06/03/17 17:07 17:07 19:17 WBC 16.7 H RBC 3.76 Hgb 7.5 L Hct 24.2 L MCV 64 L MCH 20.0 L MCHC 31.0 L RDW 21.6 H Plt Count 284 Seg Neutrophils % Not Reportable Lymphocytes % Not Reportable Monocytes % Not Reportable Eosinophils % Not Reportable Basophils % Not Reportable Absolute Neutrophils Not Reportable Absolute Lymphocytes Not Reportable Absolute Monocytes Not Reportable Absolute Eosinophils Not Reportable Absolute Basophils Not Reportable Sodium 139.3 Potassium 3.8 Chloride 107 Carbon Dioxide 19 L Anion Gap 13 BUN 12 Creatinine 0.57 Est GFR ( Amer) > 60 Est GFR (Non-Af Amer) > 60 Glucose 90 Calcium 8.6 Magnesium Lipase Cancelled Blood Type Antibody Screen 06/03/17 06/03/17 06/03/17 19:17 19:17 19:17 WBC 18.1 H RBC 4.03 Hgb 7.8 L Hct 25.5 L MCV 63 L MCH 19.4 L MCHC 30.6 L RDW 22.0 H Plt Count 339 Seg Neutrophils % Not Reportable Lymphocytes % Not Reportable Monocytes % Not Reportable Eosinophils % Not Reportable Basophils % Not Reportable Absolute Neutrophils Not Reportable Absolute Lymphocytes Not Reportable Absolute Monocytes Not Reportable Absolute Eosinophils Not Reportable Absolute Basophils Not Reportable Sodium 138.5 Potassium 4.1 Chloride 106 Carbon Dioxide 19 L Anion Gap 14 BUN 12 Creatinine 0.57 Est GFR ( Amer) > 60 Est GFR (Non-Af Amer) > 60 Glucose 117 H Calcium 9.0 Magnesium 1.9 Lipase 45.6 Blood Type Antibody Screen 06/03/17 06/03/17 06/04/17 19:46 22:00 06:29 WBC 13.2 H 9.7 RBC 3.55 L 3.25 L Hgb 7.1 L 6.7 L Hct 22.5 L 20.4 L MCV 63 L 63 L MCH 20.1 L 20.7 L MCHC 31.8 L 32.8 RDW 21.9 H 21.9 H Plt Count 269 245 Seg Neutrophils % 86.6 H 72.7 Lymphocytes % 9.5 L 20.2 Monocytes % 3.8 6.8 Eosinophils % 0.0 0.0 Basophils % 0.1 0.3 Absolute Neutrophils 11.4 H 7.1 Absolute Lymphocytes 1.3 2.0 Absolute Monocytes 0.5 0.7 Absolute Eosinophils 0.0 0.0 Absolute Basophils 0.0 0.0 Sodium Potassium Chloride Carbon Dioxide Anion Gap BUN Creatinine Est GFR ( Amer) Est GFR (Non-Af Amer) Glucose Calcium Magnesium Lipase Blood Type B POSITIVE Antibody Screen NEGATIVE 06/04/17 06:29 WBC RBC Hgb Hct MCV MCH MCHC RDW Plt Count Seg Neutrophils % Lymphocytes % Monocytes % Eosinophils % Basophils % Absolute Neutrophils Absolute Lymphocytes Absolute Monocytes Absolute Eosinophils Absolute Basophils Sodium 140.3 Potassium 3.7 Chloride 108 H Carbon Dioxide 22 Anion Gap 10 BUN 10 Creatinine 0.58 Est GFR ( Amer) > 60 Est GFR (Non-Af Amer) > 60 Glucose 93 Calcium 8.3 L Magnesium Lipase Blood Type Antibody Screen 06/03/17 06/03/17 19:17 19:17 Creatine Kinase 181 H CK-MB (CK-2) 0.75 Troponin I < 0.012 Impressions: Doing well Post op day one. Home with a followup in a week. Plan Discharge Plan: Home today. Time Spent: Less than 30 Minutes
[2017-06-04 17:19] VITALS: BP 139/79
== END 2017-06-04 17:30 | disposition home or self-care (01) ==
LOC: OROUT 08:23 → 2S 15:55 → OROUT 06-04 17:30
PROVIDERS: ATTEND Obstetrics & Gynecology
PROC: 8E0W4CZ Robotic Assisted Procedure of Trunk Region, Percutaneous Endoscopic Approach (ICD-10-PCS; 2017-06-03)
PROC: 0UT94ZZ Resection of Uterus, Percutaneous Endoscopic Approach (ICD-10-PCS; principal; 2017-06-03 10:45)
DX: Z30.2 Encounter for sterilization (principal); D25.9 Leiomyoma of uterus, unspecified; N92.0 Excessive and frequent menstruation with regular cycle; R10.2 Pelvic and perineal pain; I10 Essential (primary) hypertension; F17.210 Nicotine dependence, cigarettes, uncomplicated; Z86.718 Personal history of other venous thrombosis and embolism; Z79.899 Other long term (current) drug therapy; Z88.0 Allergy status to penicillin
CPT/HCPCS: 58570; S2900; 36415; 80048; 80053; 81001; 81025; 82550; 82553; 82962; 83690; 83735; 840; 84484; 85025; 85027; 86850; 86900; 86901; 88307; 93005; 93010; J0131; J0360; J0690; J1100; J1170; J1200; J1630; J1885; J2060; J2250; J2270; J2405; J2704; J2765; J3010; J3490

== ENCOUNTER 2017-06-15 06:06 | Emergency (ER) | payer OTHER, MEDICARE ==
[2017-06-15] MEDS ORDERED: NORMAL SALINE 500 ML IV ONE (06:45)
[2017-06-15] MEDS ORDERED: NORMAL SALINE 1000 ML 1,000 ML IV ONE (06:59)
[2017-06-15] MEDS ORDERED: ONDANSETRON HCL INJ/PF 4 MG/2 ML SDV IV ONE (07:01)
[2017-06-15] MEDS ORDERED: MORPHINE SULFATE 10 MG/ML INJ IV ONE (07:01)
[2017-06-15 07:17] LABS: ABSOLUTE BASOPHILS # (AUTO) 0.1 10^3/uL (0.0-0.2); ABSOLUTE EOSINOPHILS # (AUTO) 0.2 10^3/uL (0.0-0.6); ABSOLUTE MONOCYTES (AUTO) 0.9 10^3/uL (0.1-1.4)
[2017-06-15 07:24] LABS: ALANINE AMINOTRANSFERASE 25 U/L (9-52); ALBUMIN 3.8 g/dL (3.5-5.0); ALKALINE PHOSPHATASE 66 U/L (38-126); ANION GAP 12 (5-19); ASPARTATE AMINO TRANSFERASE 15 U/L (14-36); BILIRUBIN,DIRECT 0.1 mg/dL (0.0-0.4); BILIRUBIN,TOTAL 0.6 mg/dL (0.2-1.3); BLOOD UREA NITROGEN 4 mg/dL (7-20); CALCIUM 8.9 mg/dL (8.4-10.2); CARBON DIOXIDE 25 mmol/L (22-30); CHLORIDE 107 mmol/L (98-107); CREATININE RESULT 0.47 mg/dL (0.52-1.25); GLUCOSE 115 mg/dL (75-110); POTASSIUM 3.2 mmol/L (3.6-5.0); PROTHROMBIN TIME 13.4 SEC (11.4-15.4); SODIUM 143.6 mmol/L (137-145); TOTAL PROTEIN 6.8 g/dL (6.3-8.2)
[2017-06-15 07:25] LABS: PARTIAL THROMBOPLASTIN TIME 33.9 SEC (23.5-35.8)
[2017-06-15 07:28] LABS: ABSOLUTE LYMPHOCYTES (AUTO) 1.6 10^3/uL (0.5-4.7); ABSOLUTE NEUT (AUTO) 8.2 10^3/uL (1.7-8.2); BASOPHILS % (AUTO) 0.5 % (0-2); EOSINOPHILS % (AUTO) 2.2 % (0-6); HEMATOCRIT 24.7 % (36.0-47.0); HGB HCT DIFFERENCE -1.3; LYMPHOCYTES % (AUTO) 14.5 % (13-45); MEAN CORPUSCULAR HGB CONC 31.6 g/dL (32.0-36.0); MEAN CORPUSCULAR VOLUME 63 fl (80-97); MONOCYTES % (AUTO) 7.9 % (3-13); RED CELL DISTRIBUTION WIDTH 22.3 % (11.5-14.0); SEGMENTED NEUTROPHILS % (AUTO) 74.9 % (42-78)
--- NOTE | 2017-06-15 07:41 | ER Document Report ---
ED General - General Chief Complaint: Abdominal Pain Stated Complaint: ABDOMINAL PAIN; VAGINAL BLEEDING Time Seen by Provider: 06/15/17 06:44 TRAVEL OUTSIDE OF THE [place] IN LAST 30 DAYS: No - HPI Patient complains to provider of: Vaginal bleeding postop Notes: Patient is coming in for vaginal bleeding postop. Patient states having lower abdominal pain. Patient is possibly postop day #11. Patient states started having heavy bleeding in the last 48 hours. Patient states that in the last 40 there she is going through 2 pads. Patient also states sharp abdominal pain. Patient states last time she has had a bowel movement was 4 days prior to arrival. Patient is currently on pain medication Percocet according to narcotic database patient has received 2 prescriptions one filled on the fifth one filled on the both for 30 tablets. Patient upon my evaluation looks to be no obvious distress. Patient commencing her face looking as though she is in pain. Denies any trauma. Denies any sexual intercourse. Patient states to have slight bleeding after surgery - Related Data Allergies/Adverse Reactions: Penicillins Allergy (Verified 06/03/17 09:00) Past Medical History - Social History Smoking Status: Unknown if Ever Smoked Family History: Reviewed & Not Pertinent Patient has suicidal ideation: No Patient has homicidal ideation: No - Past Medical History Cardiac Medical History: Reports: Hx Hypertension - ON MEDS Denies: Hx Coronary Artery Disease, Hx Heart Attack Pulmonary Medical History: Denies: Hx Asthma, Hx Bronchitis, Hx COPD, Hx Pneumonia Neurological Medical History: Denies: Hx Cerebrovascular Accident, Hx Seizures Endocrine Medical History: Reports: Hx Hypothyroidism Renal/ Medical History: Denies: Hx Peritoneal Dialysis GI Medical History: Reports: Hx Gastroesophageal Reflux Disease Musculoskeltal Medical History: Denies Hx Arthritis Psychiatric Medical History: Reports: Hx Depression Past Surgical History: Reports: Hx Section, Hx Cholecystectomy - BILE DUCTS - Immunizations Hx Diphtheria, Pertussis, Tetanus Vaccination: Yes Review of Systems - Review of Systems Constitutional: No symptoms reported EENT: No symptoms reported Cardiovascular: No symptoms reported Respiratory: No symptoms reported Gastrointestinal: Abdominal pain Genitourinary: No symptoms reported Female Genitourinary: Vaginal bleeding Musculoskeletal: No symptoms reported Skin: No symptoms reported Hematologic/Lymphatic: No symptoms reported Neurological/Psychological: No symptoms reported -: Yes All other systems reviewed and negative Physical Exam - Vital signs Vitals: Temp Pulse Resp BP Pulse Ox 98.1 F 110 H 20 136/96 H 100 06/15/17 06:15 06/15/17 06:15 06/15/17 06:15 06/15/17 06:15 06/15/17 06:15 Interpretation: Normal - General General appearance: Appears well, Alert - HEENT Head: Normocephalic, Atraumatic Eyes: Normal Pupils: PERRL - Respiratory Respiratory status: No respiratory distress Chest status: Nontender Breath sounds: Normal Chest palpation: Normal - Cardiovascular Rhythm: Regular Heart sounds: Normal auscultation Murmur: No - Abdominal Inspection: Normal Distension: No distension Bowel sounds: Normal Tenderness: Nontender Organomegaly: No organomegaly - Genitourinary Notes: Speculum exam was performed blood in the vaginal vault using a large Q-tip was able to remove most of his blood is visualized and noted a rapid refilling no rapid bleeds - Back Back: Normal, Nontender - Extremities General upper extremity: Normal inspection, Nontender, Normal color, Normal ROM , Normal temperature General lower extremity: Normal inspection, Nontender, Normal color, Normal ROM , Normal temperature, Normal weight bearing. No: Mikhail's sign - Neurological Neuro grossly intact: Yes Cognition: Normal Orientation: AAOx4 [place] Coma Scale Eye Opening: Spontaneous [place] Coma Scale Verbal: Oriented [place] Coma Scale Motor: Obeys Commands [place] Coma Scale Total: 15 Speech: Normal Motor strength normal: LUE, RUE, LLE, RLE Sensory: Normal - Psychological Associated symptoms: Normal affect, Normal mood - Skin Skin Temperature: Warm Skin Moisture: Dry Skin Color: Normal Course - Re-evaluation Re-evalutation: 06/15/17 07:41 Speculum exam did not reveal any rapid bleed no need to perform any packing or urgently called be at this time. Will perform CBC urinalysis due to patient not having bowel movement will also have a acute abdominal series performed 06/15/17 14:52 X-ray showed constipation improvement of the patient's H&H. Discussed with STRU[employer]URAL [employer] SHOP SUPERVISOR applications developer agrees with assessment and plan discharge home. Patient is follow-up with primary care physician and TOOL ROOM GEAR MACHINE OPERATOR - Vital Signs Vital signs: Temp Pulse Resp BP Pulse Ox 98.6 F 100 18 145/95 H 99 06/15/17 10:04 06/15/17 10:04 06/15/17 10:04 06/15/17 10:04 06/15/17 10:04 - Laboratory Result Diagrams: 06/15/17 06:54 06/15/17 06:54 Laboratory results interpreted by me: 06/15/17 06/15/17 06/15/17 06:54 06:54 07:55 WBC 11.0 H Hgb 7.8 L Hct 24.7 L MCV 63 L MCH 20.0 L MCHC 31.6 L RDW 22.3 H Potassium 3.2 L BUN 4 L Creatinine 0.47 L Glucose 115 H Urine Ketones 20 H Urine Urobilinogen 4.0 H Discharge - Discharge Clinical Impression: Constipation due to opioid therapy, Vaginal bleeding Condition: Good Disposition: HOME, SELF-CARE Instructions: Abdominal Pain ([facility]), Constipation ([facility]) Additional Instructions: Your laboratory studies show improvement in your anemia. Your physical examination does not show any rapid bleeding. Your x-ray shows moderate constipation which is more likely the etiology of your abdominal pain. More likely her constipated due to the pain medication and she has been prescribed. I recommend staying well-hydrated and he can try the suppositories provided also the MiraLAX prescribed. Take as directed. Continue your home pain medication therapy. Return to the ER for any concerning etiology. I discussed her case with your TOOL ROOM GEAR MACHINE OPERATOR recommends follow-up at her next appointment as scheduled. He may call the office on Saturday if you would like to schedule your appointment earlier. You can also take Tylenol and Motrin for your pain. Prescriptions: Polyethylene Glycol 3350 [Miralax Powder 17 gm/Packet] 1 packet PO BID #1 pkg
[2017-06-15 07:55] LABS: HEMOGLOBIN 7.8 g/dL (12.0-15.5)
[2017-06-15 07:56] LABS: ANISOCYTOSIS 3+; HYPOCHROMASIA 2+; MICROCYTOSIS 3+; OVALOCYTES SLIGHT; POIKILOCYTOSIS 1+; POLYCHROMASIA SLIGHT; SCHISTOCYTES SLIGHT; TEAR DROP CELLS SLIGHT; TOXIC GRANULATION SLIGHT
--- NOTE | 2017-06-15 08:07 | RADIOLOGY REPORT (SQ) ---
EXAM DESCRIPTION: ACUTE ABDOMEN SERIES COMPLETED DATE/TIME: 06/15/2017 7:47 am REASON FOR STUDY: constipation COMPARISON: 2013. NUMBER OF VIEWS: Three views. TECHNIQUE: Frontal chest, supine abdomen and upright/decubitus abdomen radiographic images acquired. LIMITATIONS: None. FINDINGS: CHEST: Lungs clear of infiltrates. FREE AIR: None. No abnormal gas collections. BOWEL GAS PATTERN: No suspicious dilatation or air-fluid levels, nonobstructive appearance. Moderate retained stool. CALCIFICATIONS: No suspicious calcifications. Grossly stable appearance phleboliths in the pelvis. HARDWARE: None in the abdomen. SOFT TISSUES: No gross mass or suggestion of organomegaly. BONES: No acute fracture. No worrisome bone lesions. OTHER: No other significant finding. IMPRESSION: No acute findings. Grossly moderate retained stool. TECHNICAL DOCUMENTATION: JOB ID: [id number] [employer]- All Rights Reserved
[2017-06-15 08:31] LABS: APPEARANCE,URINE CLEAR; BILIRUBIN,URINE NEGATIVE (NEGATIVE); GLUCOSE, URINE NEGATIVE (NEGATIVE); KETONES,URINE 20 mg/dL (NEGATIVE); LEUKOCYTE ESTERASE,URINE NEGATIVE (NEGATIVE); NITRITE,URINE NEGATIVE (NEGATIVE); PROTEIN,URINE NEGATIVE (NEGATIVE); URINE SPECIFIC GRAVITY 1.009
[2017-06-15] MEDS ORDERED: KETOROLAC TROMETHAMINE INJ/PF 30 MG/1 ML SDV IV ONE (09:35)
[2017-06-15] MEDS ORDERED: GLYCERIN (ADULT) SUPP.RECT PR ONE (09:45)
[2017-06-15 10:06] VITALS: BP 153/95
== END 2017-06-15 10:05 | disposition home or self-care (01) ==
LOC: ER 06:06
DX: N93.8 Other specified abnormal uterine and vaginal bleeding (principal); K59.03 Drug induced constipation; T39.1X5A Adverse effect of 4-Aminophenol derivatives, initial encounter; I10 Essential (primary) hypertension; Z90.49 Acquired absence of other specified parts of digestive tract; E03.9 Hypothyroidism, unspecified
CPT/HCPCS: 99284; 96361; 51701; 96374; 96375; 86900; 86901; 36415; 86850; 85025; 85610; 85730; 80053; 81001; 74022; J3490; J1885; J2270; J2405; J7030

== ENCOUNTER 2017-12-10 18:57 | Emergency (ER) | payer OTHER, MEDICARE ==
[2017-12-10 19:13] VITALS: BP 155/78
[2017-12-10] MEDS ORDERED: LIDOCAINE 2% VISCOUS SOLN 20 ML UDCUP PO ONE (19:26)
[2017-12-10] MEDS ORDERED: BENZONATATE 100 MG CAPSULE PO ONE (19:26)
--- NOTE | 2017-12-10 19:31 | ER Document Report ---
HPI - HPI Pain Level: 5 Notes: Patient is a 36-year-old female with a history of hypertension who presents to the ED complaining of dental pain to #30. Patient states that her filling came out and she has had pains over the last 3 days. Patient states that the filling fell out about a month ago. Patient states that she did try to call her dentist today, but could not get a hold of anybody. The pain does not radiate. She has not noticed any abscess or purulent discharge. She is still able to eat and drink, but her tooth is very sensitive to air flow. Patient has an allergy to penicillins. No other concerns or complaints at this time. Denies any headache, fever, head injury, neck pain, URI, sore throat, chest pain , palpitations, syncope, cough, shortness of breath, wheeze, dyspnea, abdominal pain, nausea/vomiting/diarrhea, urinary retention, dysuria, hematuria, or rash. - ROS Systems Reviewed and Negative: Yes All other systems reviewed and negative - REPRODUCTIVE Reproductive: DENIES: : Past Medical History - Social History Smoking Status: Unknown if Ever Smoked Family History: Reviewed & Not Pertinent - Past Medical History Cardiac Medical History: Reports: Hx Hypertension - ON MEDS Denies: Hx Coronary Artery Disease, Hx Heart Attack Pulmonary Medical History: Denies: Hx Asthma, Hx Bronchitis, Hx COPD, Hx Pneumonia Neurological Medical History: Denies: Hx Cerebrovascular Accident, Hx Seizures Endocrine Medical History: Reports: Hx Hypothyroidism Renal/ Medical History: Denies: Hx Peritoneal Dialysis GI Medical History: Reports: Hx Gastroesophageal Reflux Disease Musculoskeltal Medical History: Denies Hx Arthritis Psychiatric Medical History: Reports: Hx Depression Past Surgical History: Reports: Hx Section, Hx Cholecystectomy - BILE DUCTS - Immunizations Hx Diphtheria, Pertussis, Tetanus Vaccination: Yes Vertical Provider Document - CONSTITUTIONAL Agree With Documented VS: Yes Notes: PHYSICAL EXAMINATION: GENERAL: Well-appearing, well-nourished and in no acute distress. HEAD: Atraumatic, normocephalic. EYES: Pupils equal round and reactive to light, extraocular movements intact, sclera anicteric, conjunctiva are normal. ENT: EAC clear b/l. TM's intact b/l without erythema, fluid, or perforation. Nares patent and without discharge. oropharynx clear without exudates. No tonsilar hypertrophy or erythema. Moist mucous membranes. No sinus tenderness. Uvula midline. No palatine shift. No tongue protrusion. No respiratory compromise. Mouth: Poor dentition. + mild decay and mild gingivitis. No obvious abscess or discharge noted. No facial swelling. + tenderness to tooth #31 with missing piece of filling. NECK: Normal range of motion, supple without lymphadenopathy. No rigidity/ meningismus. LUNGS: Breath sounds clear to auscultation bilaterally and equal. No wheezes rales or rhonchi. HEART: Regular rate and rhythm without murmurs, rubs, gallops. NEUROLOGICAL: Cranial nerves grossly intact. Normal speech, normal gait. PSYCH: Normal mood, normal affect. SKIN: Warm, Dry, normal turgor, no rashes or lesions noted. - INFECTION CONTROL TRAVEL OUTSIDE OF THE [place] IN LAST 30 DAYS: No Course - Re-evaluation Re-evalutation: 12/10/17 19:28 Patient is an afebrile, well-hydrated, 36-year-old female who presents to the ED with dental pain, suspect nerve root etiology versus infection. Vitals are acceptable. PE is otherwise unremarkable. No I&D, labs, or imaging warranted at this time based on H&P. Tessalon crushed over tooth and Viscous lidocaine dispensed today. I will send her home with a prescription for cleocin. Low suspicion for any meningitis, sepsis, peritonsillar/pharyngeal abscess, respiratory compromise, Andres's, temporal arteritis, or other emergent systemic condition at this time. Patient is aware this condition can change from initial presentation and she needs to monitor symptoms closely. Conservative measures otherwise for symptoms. Call to schedule an appointment with a dentist for further evaluation and management. Recheck with your PCM this week as well. Return to the ED with any worsening/concerning symptoms otherwise as reviewed in discharge. Patient is in agreement. - Vital Signs Vital signs: Temp Pulse Resp BP Pulse Ox 99.1 F 84 18 155/78 H 99 12/10/17 19:07 12/10/17 19:07 12/10/17 19:07 12/10/17 19:07 12/10/17 19:07 Discharge - Discharge Clinical Impression: Pain, dental Condition: Stable Disposition: HOME, SELF-CARE Instructions: Clindamycin ([facility]), Toothache ([facility]) Additional Instructions: [place] and floss twice daily Maintain fluid intake Take antibiotics as directed Mouthwash, salt water gargles, peroxide rinse as needed Tylenol/ibuprofen as needed Recheck with PCM this week Call today/tomorrow and schedule an appointment with your dentist for further evaluation Return to the ED with any worsening symptoms and/or development of fever, headache, facial swelling, swelling of lips/tongue/throat, trouble swallowing, drooling, hoarseness, neck pain/stiffness, chest pain, palpitations, syncope, shortness of breath, trouble breathing, abdominal pain, n/v/d, numbness/tingling , or other worsening symptoms that are concerning to you. Prescriptions: Benzonatate [Tessalon Per[place] 100 mg Capsule] 1 tab PO Q8HP PRN #10 cap PRN Reason: Forms: Elevated Blood Pressure Referrals: [facility] [Provider Group] - Follow up as needed DEEJAY SANDOVAL MD [ACTIVE STAFF] - 12/11/17
[2017-12-10] MEDS ORDERED: BUPIVACAINE HCL 0.75% INJ/PF (7.5 MG/1 ML) 10 ML SDV INJ ONE (19:56)
[2017-12-10] MEDS ORDERED: OXYCODONE HCL IR 5 MG TABLET PO ONE (20:22)
== END 2017-12-10 20:35 | disposition home or self-care (01) ==
LOC: ER 18:57
PROC: 3E0T3BZ Introduction of Anesthetic Agent into Peripheral Nerves and Plexi, Percutaneous Approach (ICD-10-PCS; principal; 2017-12-10)
DX: K08.9 Disorder of teeth and supporting structures, unspecified (principal); I10 Essential (primary) hypertension; E03.9 Hypothyroidism, unspecified; Z90.49 Acquired absence of other specified parts of digestive tract
CPT/HCPCS: 99282; 64400; J3490

== ENCOUNTER → 2018-03-04 | Outpatient (CLI) | payer MEDICARE, OTHER ==
--- NOTE | 2018-03-04 11:13 | RADIOLOGY REPORT (SQ) ---
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 Source and MIP images reviewed. LIMITATIONS: None. FINDINGS: GALLBLADDER: Surgically absent INTRAHEPATIC DUCTS: Nondilated. EXTRAHEPATIC DUCTS: Common hepatic duct, common bile duct are normal caliber. No choledocholithiasis . PANCREAS: There is focal stenosis of the pancreatic duct at its junction with the common bile duct in the pancreatic head. This stricture is best shown on axial T2 image 22, series 5. Remainder of the pancreatic duct throughout the neck body and tail is dilated, 5 to 6 mm in diameter. There is decreased T2 and T1 signal at the pancreatic head adjacent to the distal common duct and pineda creatic duct, likely reflecting dense fibrosis. No discrete mass is identified. No peripancreatic f luid collections or retroperitoneal inflammation. Normal flow void in the splenic vein. LIVER, SPLEEN, KIDNEYS, ADRENALS: No significant abnormality. Incidental finding of bilateral less t nava 2 cm upper pole renal cortical cysts. VESSELS: No evidence of aneurysm. Grossly appropriate flow voids in the major vascular structures. LUNG BASES: Grossly clear. Mild cardiomegaly without pericardial effusion OTHER: No other significant finding. IMPRESSION: Post cholecystectomy. No MRCP evidence of choledocholithiasis or intra/extrahepatic biliary ductal dilatation Decreased T2 and T1 signal at the pancreatic head without discrete mass likely related to fibrosis. Focal stricture of the pancreatic duct as it joins the common duct at the pancreatic head. Remainder of the pancreatic duct is 5 to 6 mm in diameter, dilated. TECHNICAL DOCUMENTATION: JOB ID: [id number] [employer]- All Rights Reserved Reading location - IP/workstation name: [email or web address]
== END ==
LOC: RAD 08:47
PROVIDERS: ATTEND Internal Medicine
DX: K86.1 Other chronic pancreatitis (principal); K86.89 Other specified diseases of pancreas
CPT/HCPCS: 74181